=== PATIENT | female | born 1945 ===

== ENCOUNTER 2022-01-12 09:45 | Inpatient (IN) | payer OTHER ==
[~2022-01-12] VITALS: Ht 160 cm; Wt 85.7 kg
[2022-01-13] MEDS ORDERED: CANDESARTAN CIL32 MG (08:49)
[2022-01-13] MEDS ORDERED: CHLORTHALIDONE25 MG (08:49)
[2022-01-13] MEDS ORDERED: HUMALOG MI100 UNIT/2 (08:49)
[2022-01-13] MEDS ORDERED: DOXAZOSIN MESYLA4 MG (08:49)
[2022-01-13] MEDS ORDERED: SYNTHROID137 MCG (08:49)
[2022-01-13] MEDS ORDERED: ATORVASTATIN CA20 MG (08:50)
[2022-01-13] MEDS ORDERED: METFORMIN HCL1000 M3 (08:50)
[2022-01-13] MEDS ORDERED: PANTOPRAZOLE SO40 MG (08:50)
[2022-01-13] MEDS ORDERED: METOPROLOL SUCC50 MG (08:50)
[2022-01-13] MEDS ORDERED: OMEGA-3 ACID ETH1 GM (08:50)
[2022-01-13] MEDS ORDERED: VOLTAREN ARTHRI20 GM (08:51)
[2022-01-13] MEDS ORDERED: PIOGLITAZONE HC30 MG (08:51)
[2022-01-18] MEDS ORDERED: LEVSIN/SL0.125 MG SL (15:19)
[2022-01-18] MEDS ORDERED: LEVOFLOXACIN500 MG PO (15:19)
[2022-01-18] MEDS ORDERED: INTESTINEX680 M1 PO (15:19)
[2022-01-18] MEDS ORDERED: ULTRAM50 MG PO (15:19)
== END 2022-01-18 16:32 | disposition home or self-care (01) | DRG 330 ==
LOC: SURH 17:30
PROVIDERS: ADMIT Colon & Rectal Surgery; ATTEND Colon & Rectal Surgery
PROC: 3E0F7SF Introduction of Other Gas into Respiratory Tract, Via Natural or Artificial Opening (ICD-10-PCS; 2022-01-12)
PROC: 07BC4ZZ Excision of Pelvis Lymphatic, Percutaneous Endoscopic Approach (ICD-10-PCS; 2022-01-14)
PROC: 0DBU4ZZ Excision of Omentum, Percutaneous Endoscopic Approach (ICD-10-PCS; 2022-01-14)
PROC: 30233N1 Transfusion of Nonautologous Red Blood Cells into Peripheral Vein, Percutaneous Approach (ICD-10-PCS; 2022-01-14)
PROC: 0DTG4ZZ Resection of Left Large Intestine, Percutaneous Endoscopic Approach (ICD-10-PCS; principal; 2022-01-14 19:45)
PROC: 4A12X4Z Monitoring of Cardiac Electrical Activity, External Approach (ICD-10-PCS; 2022-01-15)
DX: C18.6 Malignant neoplasm of descending colon (principal); C18.5 Malignant neoplasm of splenic flexure; K92.1 Melena; N39.0 Urinary tract infection, site not specified; B96.29 Other Escherichia coli [E. coli] as the cause of diseases classified elsewhere; K59.09 Other constipation; D12.4 Benign neoplasm of descending colon; K57.30 Diverticulosis of large intestine without perforation or abscess without bleeding; D63.0 Anemia in neoplastic disease; E11.22 Type 2 diabetes mellitus with diabetic chronic kidney disease; I12.9 Hypertensive chronic kidney disease with stage 1 through stage 4 chronic kidney disease, or unspecified chronic kidney disease; N18.30 Chronic kidney disease, stage 3 unspecified; E66.8 Other obesity; Z79.4 Long term (current) use of insulin